=== PATIENT | male | born 1990 | race Caucasian/White ===

== ENCOUNTER 2020-05-31 01:07 | Emergency (ER) | payer MEDICAID, SELFPAY ==
[~2020-05-31] VITALS: Ht 165.1 cm; Wt 72.6 kg
[2020-05-31 01:10] VITALS: Ht 165.1 cm; Wt 72.6 kg
[2020-05-31 02:33] LABS: PLATELET COUNT 315 x10^3mcL (130-400); RED CELL DISTRIBUTION WIDTH 12.8 % (11.5-14.5)
[2020-05-31 02:44] LABS: CALCIUM 8.8 mg/dL (8.5-10.1); CARBON DIOXIDE 28.8 mmol/L (21-32); CHLORIDE SERUM 101 mmol/L (98-107); CREATININE SERUM 0.8 mg/dL (0.7-1.3); GFR1 > 60 mL/min; GLUCOSE SERUM 100 mg/dL (74-106); POTASSIUM SERUM 3.9 mmol/L (3.5-5.1); SODIUM SERUM 137 mmol/L (136-145)
[2020-05-31 02:49] LABS: ALBUMIN 4.1 g/dL (3.4-5.0); ALKALINE PHOSPHATASE 78 U/L (46-116); ALT/SGPT 77 U/L (16-63); AST/SGOT 42 U/L (15-37); LIPASE 135 IU/L (73-393); TOTAL PROTEIN, SERUM 7.8 g/dL (6.4-8.2)
[2020-05-31 05:02] VITALS: BP 122/80
== END 2020-05-31 05:02 | disposition home or self-care (01) ==
LOC: ED 01:07
PROVIDERS: Student in an Organized Health Care Education/Training Program
DX: B34.9 Viral infection, unspecified (principal); R10.816 Epigastric abdominal tenderness; Z20.828 Contact with and (suspected) exposure to other viral communicable diseases
CPT/HCPCS: J1200; J1885; J2405; J7030; Q0092; U0003-CS

== ENCOUNTER 2020-06-05 09:17 | Emergency (ER) | payer MEDICAID ==
[~2020-06-05] VITALS: Ht 167.6 cm; Wt 79.8 kg
[2020-06-05 09:29] VITALS: Ht 167.6 cm; Wt 79.8 kg
[2020-06-05 10:21] VITALS: BP 110/67
== END 2020-06-05 10:21 | disposition home or self-care (01) ==
LOC: ED 09:17
DX: J01.90 Acute sinusitis, unspecified (principal)

== ENCOUNTER 2020-06-17 13:51 | Emergency (ER) | payer MEDICAID ==
[~2020-06-17] VITALS: Ht 170.2 cm; Wt 82.6 kg
[2020-06-17 14:16] VITALS: BP 117/63; Ht 170.2 cm; Wt 82.6 kg
== END 2020-06-17 17:06 | disposition home or self-care (01) ==
LOC: ED 13:51
DX: R51.9 Headache, unspecified (principal); R11.10 Vomiting, unspecified

== ENCOUNTER 2020-08-03 18:17 | Emergency (ER) | payer MEDICAID ==
[~2020-08-03] VITALS: Ht 165.1 cm; Wt 77.1 kg
[2020-08-03 18:27] VITALS: BP 134/90; Ht 165.1 cm; Wt 77.1 kg
[2020-08-03 20:12] LABS: BASOPHIL % 0.9 % (0.2-1.5); PLATELET COUNT 302 x10^3mcL (152-348)
[2020-08-03 20:22] LABS: CALCIUM 8.7 mg/dL (8.5-10.1); CARBON DIOXIDE 25.7 mmol/L (21-32); CHLORIDE SERUM 103 mmol/L (98-107); CREATININE SERUM 0.8 mg/dL (0.7-1.3); GFR1 > 60 mL/min; GLUCOSE SERUM 127 mg/dL (74-106); POTASSIUM SERUM 3.3 mmol/L (3.5-5.1); SODIUM SERUM 139 mmol/L (136-145)
[2020-08-03 20:26] LABS: ALBUMIN 3.9 g/dL (3.4-5.0); ALKALINE PHOSPHATASE 87 U/L (46-116); ALT/SGPT 60 U/L (16-63); AST/SGOT 30 U/L (15-37); BILIRUBIN TOTAL 0.6 mg/dL (0.20-1.00); LIPASE 100 IU/L (73-393); TOTAL PROTEIN, SERUM 7.2 g/dL (6.4-8.2)
== END 2020-08-03 23:20 | disposition home or self-care (01) ==
LOC: ED 18:17
PROVIDERS: Student in an Organized Health Care Education/Training Program
DX: K62.5 Hemorrhage of anus and rectum (principal); K62.89 Other specified diseases of anus and rectum; R36.9 Urethral discharge, unspecified
CPT/HCPCS: Q9967